=== PATIENT | female | born 1945 | race Caucasian/White ===

== ENCOUNTER 2021-03-21 00:46 | Emergency (ER) | payer OTHER ==
[2021-03-21 00:54] VITALS: BP 165/66; PULSE 58; TEMP 97.7; BMI 17.6
[2021-03-21] MEDS ORDERED: DIPHTH,PERTUSS(ACELL),TET 0.5 ML DISP.SYRIN IM ONE ×2 (02:24→02:37)
== END 2021-03-21 03:58 | disposition left against medical advice (07) ==
LOC: JER 00:46
PROC: 0JQ10ZZ Repair Face Subcutaneous Tissue and Fascia, Open Approach (ICD-10-PCS; principal; 2021-03-21)
PROC: 3E0234Z Introduction of Serum, Toxoid and Vaccine into Muscle, Percutaneous Approach (ICD-10-PCS; 2021-03-21)
DX: S01.01XA Laceration without foreign body of scalp, initial encounter (principal)
CPT/HCPCS: 12011-25; 70450-TC; 72125-TC; 90471; 90715; 93005; 93010; 99284-25

== ENCOUNTER → 2021-03-24 | Day surgery (SDC) | payer OTHER | END | disposition home or self-care (01) | LOC: JRADUS-SUR 11:57 → JRADUS 11:57 → EDSTATUS 12:30 | PROVIDERS: ATTEND Family Medicine | PROC: 0H9T3ZX Drainage of Right Breast, Percutaneous Approach, Diagnostic (ICD-10-PCS; principal; 2021-03-24) | DX: N63.10 Unspecified lump in the right breast, unspecified quadrant (principal); C50.811 Malignant neoplasm of overlapping sites of right female breast; Z17.0 Estrogen receptor positive status [ER+] | CPT/HCPCS: 19083; 76642-TC-RT; 77065-TC; 87899; 88305-TC; 88341-TC; 88342-TC; A4648 ==

== ENCOUNTER 2021-03-27 17:48 | Emergency (ER) | payer OTHER ==
[2021-03-27 17:53] VITALS: BP 150/69; PULSE 61; TEMP 98.2; BMI 18.6
== END 2021-03-27 18:49 | disposition home or self-care (01) ==
LOC: JERFT 17:48
DX: Z48.02 Encounter for removal of sutures (principal)
CPT/HCPCS: 99281-25

== ENCOUNTER 2021-05-18 05:27 | Day surgery (SDC) | payer OTHER ==
[2021-05-13 15:02] VITALS: BMI 17.9
[2021-05-18] MEDS ORDERED: LIDOCAINE HCL/PF 2% SDV 5ML VIAL ONE (12:47)
[2021-05-18] MEDS ORDERED: GLYCOPYRROLATE 0.2 MG/1 ML VIAL ONE (12:47)
[2021-05-18] MEDS ORDERED: PROPOFOL 20 ML ONE ×2 (12:48)
[2021-05-18] MEDS ORDERED: ceFAZolin SODIUM 1 GM VIAL IVPB ONE (13:05)
[2021-05-18] MEDS ORDERED: PHENYLEPHRINE HCL 10 MG/1 ML SINGLE DOSE VIAL ONE (13:07)
[2021-05-18] MEDS ORDERED: ceFAZolin SODIUM 1 GM VIAL ONE (13:07)
[2021-05-18] MEDS ORDERED: DEXAMETHASONE SOD PHOSPHATE 4 MG/1 ML VIAL ONE (13:18)
[2021-05-18] MEDS ORDERED: LIDOCAINE HCL 1%, 10 MG/ML (20ML VIAL) PNB ONE (13:30)
[2021-05-18] MEDS ORDERED: ONDANSETRON 4 MG/2 ML VIAL IVPUSH PRN (14:08)
[2021-05-18] MEDS ORDERED: oxyCODONE HCL 5 MG TABLET PO PRN ×2 (14:08)
[2021-05-18] MEDS ORDERED: LACTATED RINGERS SOLUTION 1,000 ML IV SCH (14:15)
[2021-05-18 16:53] VITALS: BP 142/58; PULSE 55; TEMP 97.7
== END 2021-05-18 16:40 | disposition home or self-care (01) ==
LOC: JASU-SURG 05:27
PROVIDERS: ATTEND Surgery
PROC: C71L1ZZ Planar Nuclear Medicine Imaging of Upper Chest Lymphatics using Technetium 99m (Tc-99m) (ICD-10-PCS; 2021-05-18)
PROC: 0HBT0ZZ Excision of Right Breast, Open Approach (ICD-10-PCS; principal; 2021-05-18 11:00)
PROC: 07B50ZX Excision of Right Axillary Lymphatic, Open Approach, Diagnostic (ICD-10-PCS; 2021-05-18 11:00)
DX: C50.911 Malignant neoplasm of unspecified site of right female breast (principal); I10 Essential (primary) hypertension; E11.9 Type 2 diabetes mellitus without complications; Z79.84 Long term (current) use of oral hypoglycemic drugs
CPT/HCPCS: 78195-TC; 82962; 94760; A9541

== ENCOUNTER 2022-10-26 10:21 | Day surgery (SDC) | payer OTHER ==
[~2022-10-26 10:21] MED LIST: DENOSUMAB 60 MG/ML DISP.SYRIN SQ ONE
[2022-10-26 14:05] VITALS: BP 123/65; PULSE 69; RESP 18; TEMP 98.2
== END 2022-10-26 10:45 | disposition home or self-care (01) ==
LOC: JONCNONCHE 10:21
PROC: 3E013GC Introduction of Other Therapeutic Substance into Subcutaneous Tissue, Percutaneous Approach (ICD-10-PCS; principal; 2022-10-26)
DX: M81.0 Age-related osteoporosis without current pathological fracture (principal); C50.919 Malignant neoplasm of unspecified site of unspecified female breast
CPT/HCPCS: 96372; J0897